=== PATIENT | male | born 1940 | race Caucasian/White ===

== ENCOUNTER → 2024-10-03 | Outpatient (BNVA) | payer MEDICARE, BC, SELFPAY | END | disposition home or self-care (01) | PROVIDERS: PCP Family Medicine; Referring Provider Family Medicine; Visit Provider Urology | DX: N40.1 Benign prostatic hyperplasia with lower urinary tract symptoms (principal); N13.8 Other obstructive and reflux uropathy; E11.42 Type 2 diabetes mellitus with diabetic polyneuropathy; I25.10 Atherosclerotic heart disease of native coronary artery without angina pectoris; E66.9 Obesity, unspecified; Z68.30 Body mass index [BMI] 30.0-30.9, adult | CPT/HCPCS: 81003; 99212; G0463 ==

== ENCOUNTER → 2024-10-21 | Outpatient (CLI) | payer MEDICARE, BC, SELFPAY ==
[2024-10-21 14:23] LABS: Glucose Estimated Average 169 mg/dL (80-131); Hemoglobin A1C 7.5 % Hgb (4.8-6.0)
[2024-10-21 14:30] LABS: Anion Gap 8 (7-16); BUN/Creatinine Ratio 29 Ratio (12-20); Blood Urea Nitrogen 46 mg/dL (9-23); Carbon Dioxide 26.9 mMol/L (20.0-31.0); Chloride 106 mMol/L (98-107); Creatinine (Component) 1.6 mg/dL (0.6-1.3); Glucose 156 mg/dL (74-106); Osmolality,Calculated 296 (275-295); Potassium 4.7 mMol/L (3.4-5.1); Sodium 141 mMol/L (136-145); eGFR 42 See Note
== END | disposition home or self-care (01) ==
LOC: COPL 13:29
PROVIDERS: PCP Nurse Practitioner Family; Referring Provider Nurse Practitioner Family; Visit Provider Nurse Practitioner Family
DX: E11.21 Type 2 diabetes mellitus with diabetic nephropathy (principal)
CPT/HCPCS: 36415; 80048; 83036

== ENCOUNTER → 2024-12-07 | Outpatient (CLI) | payer MEDICARE, BC, SELFPAY ==
[2024-12-07 17:44] LABS: Amphetamine/Methamp Scrn,U Negative (Negative); Barbiturate Screen,Urine Negative (Negative); Benzodiazepines Screen,Urine Negative (Negative); Benzoylecgonine Screen, Ur Negative (Negative); Fentanyl Screen,Urine Negative (Negative); Opiate Screen,Urine Negative (Negative); THC Screen,Urine Negative (Negative)
== END | disposition home or self-care (01) ==
PROVIDERS: PCP Nurse Practitioner Family; Referring Provider Nurse Practitioner Family; Visit Provider Nurse Practitioner Family
DX: G89.4 Chronic pain syndrome (principal)
CPT/HCPCS: 80307

== ENCOUNTER 2025-03-02 14:04 | Outpatient (RCR) | payer MEDICARE, BC, SELFPAY ==
--- NOTE | 2025-03-02 15:21 | CTCFLWUP_ITS ---
Patient: RADHA PACKER : 1940 Page 2 of 2 FOLLOW UP NOTE DATE OF SERVICE: 03/02/2025 NAME: RADHA PACKER ACCOUNT: [id number] : 1940 AGE: 84 INTERVAL HISTORY: Subjective: Chief Complaint Follow-up for neutropenia History of Present Illness Radha Galo is a patient with a history of mild neutropenia who presents for follow-up. He was last seen by Dr. Santana over a year ago for neutropenia and other unspecified issues. The patient reports that he has not had any blood work done this year, despite being called yesterday to come in for an appointment today. He mentions that his blood has always had just a little for over the years, suggesting a chronic, mild hematological condition. Objective: Laboratory, Imaging, and Diagnostic Test Results - Previous results: - CBC: Mild neutropenia (date not specified) ONCOLOGY HISTORY: DIAGNOSIS: Mild asymptomatic leukopenia and neutropenia of unclear etiology. REASON FOR TODAY?S VISIT: This is office follow-up visit. Mr. Packer is here at [facility]. He is clinically doing very well. Denies any new complaints. Denies any cough, chest pain, abdominal pain or leg cramps. He does have persistent neutropenia which is asymptomatic. Patient at this point does not want to have a repeat bone marrow biopsy since he is clinically doing well. 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 Patient had a CBC drawn on 07/08/2018 which showed his WBC count to be 2.8 with an ANC of 1.0. Hemoglobin is 11.5 and platelets 120,000. A repeat CBC was done on 07/14/2018 which showed the WBC count to be 3.3 with an ANC of 1.3. Hemoglobin is 11.2 and platelets are 124,000. A hematology consultation is requested. 08/04/2018: I am seeing the patient in consultation for the first time today. His main complaint at this time is the right lower extremity pain. Other than that he seems to be doing well. He denies any cough chest pain shortness of breath abdominal pain or leg cramps. He denies any fevers or night sweats. According to him the cytopenias are a chronic issue. 08/24/2018: Patient had labs drawn on 08/04/2018. WBC count is 2.1 with an ANC of 1.0. Hemoglobin is 11.4 and platelets are 128,000. He continues to remain asymptomatic at this time. 10/12/2018: Since last visit patient had bone marrow biopsy and aspiration done on 09/21/2018. Bone marrow biopsy showed normal cellular bone marrow with trilineage hematopoiesis. No evidence of myelodysplasia. Karyotyping showed normal 46 XY chromosomes. Flow cytometry normal. His last CBC was drawn on 09/20/2008 which showed the WBC count to be 3.4 with an ANC of 1.0. Hemoglobin is 11.7 and platelets are 138,000. Patient continues to remain asymptomatic. He denies any history of alcohol abuse. He denies any joint pains or muscle aches. 11/08/2018: Rheumatoid factor negative, SILVA negative, hepatitis panel negative 11/11/2018: Abdominal ultrasound did not show any hepatomegaly or splenomegaly. 12/27/2018: T-cell gene rearrangement study came back negative. 12/27/2018: WBC 2.4 ANC 0.8, hemoglobin 12.0 and platelets 120,000 02/10/2019: WBC count 3.4, ANC 1.4, hemoglobin 12, platelet count 239,000. 05/17/2019: WBC 3.2, ANC 1.0, hemoglobin 11.8, platelets 128,000. 12/01/2019: WBC 3.8, ANC 1.5, hemoglobin 12.6, platelets 147,000. 07/13/2020: WBC 4.1, ANC 1.6, hemoglobin 11.7, platelets 123,000. 04/09/2022: WBC 3.1, ANC 1.2, hemoglobin 10.2, MCV 91, platelets 85,000. 12/21/2023: WBC 3.6, ANC 1.2, hemoglobin 11.6, MCV 91, platelets 106,000. OTHER MEDICAL HISTORY/CONDITIONS: FAMILY HISTORY: SOCIAL HISTORY: MEDICATIONS: 1. aspirin - 81 mg 1 tab Daily 2. Lyrica - 100 mg 1 Capsule Twice a Day 3. metFORMIN - 500 mg 1 tab Daily 4. niacin - 750 mg 1 tab Daily 5. Vitamin D2 - 1,000 unit 1 Capsule Daily Medications Last Reconciled by Mónica Valdez MA on 03/02/2025 ALLERGIES: Sulfa (Sulfonamide Antibiotics) REVIEW OF SYSTEMS: A complete 14-point review of systems was performed and is negative except as noted in interval history. PHYSICAL EXAMINATION: VITAL SIGNS: Temperature?97.4, B/P?136/84, Oxygen?Saturation?96% PAIN: 0 - No pain ECOG Performance Status: 0 - Asymptomatic and fully active GENERAL APPEARANCE: Appears well, in no apparent distress, appropriately interactive. HEENT: Normocephalic, no temporal wasting, normal conjunctiva, no scleral icterus, normal hearing, lips without lesions, neck normal range of motion. CARDIOVASCULAR: Not assessed. PULMONARY: Normal respiratory effort, no respiratory distress or use of accessory muscles, speaking in full sentences, no tachypnea. EXTREMITIES: No pedal edema or cyanosis. SKIN: Normal skin appearance. NEUROLOGIC: Alert and oriented x4. PSHYCHIATRIC: Appropriate affect, mood normal, behavior normal, intact thought and speech. LABORATORY DATA: I have personally reviewed and interpreted each of the patient?s relevant lab tests, abnormal findings are below: Date 12/21/23 06/20/24 10/21/24 ??WHITE?BLOOD?COUNT?(Thou/mm3) 3.6?L ?RED?BLOOD?COUNT?(Miln/mm3) 3.94?L ?HEMOGLOBIN?(gm/dl) 11.6?L ?HEMATOCRIT?(%) 36.0?L ?PLATELET?COUNT?(Thou/mm3) 106?L ?NEUTROPHILS?%,?AUTO?(%) 34?L ?LYMPH?%,?AUTO?(%) 55?H ?NEUTROPHILS,?AUTO?(Thou/mm3) 1.2?L ?GLUCOSE,RANDOM?(mg/dL) 146?H 151?H 156?H ??BLOOD?UREA?NITROGEN?(mg/dL) 30?H 39?H 46?H ??CREATININE?(mg/dL) 1.40?H 1.60?H 1.60?H ??SODIUM?(mmol/L) 139 140 141 ??POTASSIUM?(mmol/L) 4.7 4.8 4.7 ??CHLORIDE?(mmol/L) 111?H 107 106 ??CrCl?(CandG)?(ml/min) 46.14 41.24 41.24 ??AST/SGOT?(Unit/L) 23 19 ? ??ALT/SGPT?(Unit/L) 30 18 ? ??ALKALINE?PHOSPHATASE?(Unit/L) 56 58 ? ??BILIRUBIN,?TOTAL?(mg/dL) 0.3 0.4 ? ??PROTEIN?TOTAL?(gm/dl) 6.7 6.3 ? ??ALBUMIN,?SERUM?(gm/dl) 4.2 4.2 ? ??GLOBULIN?(gm/dl) 2.5 2.1?L ? ??ALBUMIN/GLOBULIN?RATIO 1.7 2.0 ? ??CALCIUM,?SERUM?(mg/dL) 9.3 9.5 9.0 ??CALCIUM?SERUM?(CORRECTED)?(mg/dL) 9.3 9.5 ? ASSESSMENT/PLAN: Radha Galo, male patient with a history of mild neutropenia, presenting for follow-up without recent blood work. Neutropenia Assessment: Patient has a history of mild neutropenia diagnosed over a year ago by Dr. Santana. No recent blood work has been performed to assess current status. The patient reports that his blood counts have consistently been slightly low over the years. Asymptomatic leukopenia and neutropenia. Bone marrow biopsy and aspiration negative (09/21/2018). Flow cytometry negative. No evidence of myelodysplasia or leukemia. SILVA, RF negative. B12 and folate in the normal range. Hepatitis panel negative. T-cell gene rearrangement study negative. Plan: - Order complete blood count (CBC) to assess current neutrophil levels - Schedule telephone follow-up to discuss blood work results - Provide patient education on the importance of regular blood work for monitoring neutropenia The patient does not want a repeat bone marrow biopsy in view of his elderly age. No specific intervention required. ORDERS: Order # Description [id number] Comprehensive Metabolic Panel - 12 + CBC with Auto Diff + MD Follow Up 4 Week [id number] Lactate Dehydrogenase (LDH) 8775623 Vitamin B-12 + Folic Acid; Serum + Ferritin RETURN TO CLINIC: BILLING AND COMPLIANCE: I reviewed external records from providers outside my specialty as summarized above. I spent a total of 50 minutes on this patient?s care on the day of their visit excluding time spent related to any billed procedures. This time includes time spent with the patient as well as time spent documenting in the medical record, reviewing patients records and tests, obtaining history, placing orders, communicating with other healthcare professionals, counseling the patient, family or caregiver, and/or care coordination for the diagnoses above. Electronically Signed by: Iglesia Isbell MD T: 3:19 PM CC: PCP: Amy Hobbs Referring: Amy Hobbs This document was completed utilizing speech recognition software. Grammatical errors, random word insertions, pronoun errors, and incomplete sentences are an occasional consequence of this system due to software limitations, ambient noise, and hardware issues. Any formal questions or concerns about the content, text or information contained within the body of this dictation should be directly addressed to the provider for clarification.
== END 2025-03-13 23:59 | disposition home or self-care (01) ==
LOC: SCTC 14:04
PROVIDERS: PCP Nurse Practitioner Family; Referring Provider Nurse Practitioner Family; Visit Provider Internal Medicine Hematology & Oncology
DX: D70.9 Neutropenia, unspecified (principal)
CPT/HCPCS: 99212; G0463

== ENCOUNTER → 2025-03-02 | Outpatient (CLI) | payer MEDICARE, BC, SELFPAY ==
[2025-03-02 16:21] LABS: Basophils % (Auto) 1 % (0-2.5); Eosinophils % (Auto) 1 % (0-10); Hematocrit 34.1 % (41.0-53.0); Hemoglobin 10.9 g/dL (13.5-16.0); Immature Granulocytes % (Auto) 0 % (0-0); Immature Granulocytes Auto 0.01 Thou/mm3 (0.00-0.00); Lymphocytes # (Auto) 1.7 Thou/mm3 (1.0-4.8); Lymphocytes % (Auto) 50 % (10-50); Mean Corpuscular Hemoglobin 29.6 pg (25.0-35.0); Mean Corpuscular Volume 93 fL (80-100); Monocytes # (Auto) 0.3 Thou/mm3 (0.0-0.8); Monocytes % (Auto) 10 % (0-12); Neutrophils # (Auto) 1.3 Thou/mm3 (1.8-7.7); Neutrophils % (Auto) 38 % (37-80); Nucleated Red Blood Cell % 0 /100 WBC (0); Platelet Count 105 Thou/mm3 (140-440); RDW Standard Deviation 52.8 fL (35.1-43.9); Red Blood Count 3.68 Miln/mm3 (4.50-5.90); White Blood Count 3.4 Thou/mm3 (3.8-10.6)
[2025-03-02 16:32] LABS: Alanine Aminotransferase 20 U/L (10-49); Albumin/Globulin Ratio 2.1 (1.2-2.2); Alkaline Phosphatase 54 U/L (46-116); Anion Gap 6 (7-16); Aspartate Amino Transferase 19 U/L (0-34); BUN/Creatinine Ratio 21 Ratio (12-20); Bilirubin,Total 0.5 mg/dL (0.3-1.2); Blood Urea Nitrogen 29 mg/dL (9-23); Calcium 9.1 mg/dL (8.3-10.6); Calcium (Corrected) 9.1 mg/dL (8.5-10.1); Carbon Dioxide 25.2 mMol/L (20.0-31.0); Chloride 111 mMol/L (98-107); Creatinine (Component) 1.4 mg/dL (0.6-1.3); Globulin 1.9 gm/dL (2.3-3.5); Glucose 118 mg/dL (74-106); LDH (Lactate Dehydrogenase) 205 U/L (120-246); Osmolality,Calculated 289 (275-295); Potassium 4.2 mMol/L (3.4-5.1); Sodium 142 mMol/L (136-145); Total Protein 5.9 gm/dL (5.7-8.2); eGFR 49 See Note
[2025-03-02 16:36] LABS: Ferritin 343 ng/mL (10.5-307.3)
[2025-03-02 16:37] LABS: Folate 14.72 ng/mL (>5.38); Vitamin B12 488 pg/mL (211-911)
== END | disposition home or self-care (01) ==
PROVIDERS: PCP Nurse Practitioner Family; Referring Provider Nurse Practitioner Family; Visit Provider Nurse Practitioner Family
DX: D61.818 Other pancytopenia (principal)
CPT/HCPCS: 36415; 80053; 82607; 82728; 82746; 83615; 85025

== ENCOUNTER → 2025-04-14 | Outpatient (CLI) | payer MEDICARE, BC, SELFPAY ==
[2025-04-14 14:07] LABS: Creatinine MALB Rnd Ur 62 mg/dL (30-125); Microalbumin Creat Ratio 8 mg/gCrea (<30); Microalbumin, Random Urine 5 mg/L (0-300)
[2025-04-14 14:07] LABS: Glucose Estimated Average 174 mg/dL (80-131); Hemoglobin A1C 7.7 % Hgb (4.8-6.0)
[2025-04-14 14:08] LABS: Cardiac Risk Estimate 3.8 RATIO (4.0-6.7); Cholesterol 155 mg/dL (132-200); HDL Cholesterol 41 mg/dL (40-60); LDL Cholesterol,Calculated 82 mg/dL (0-130); Triglycerides 158 mg/dL (30-150)
== END | disposition home or self-care (01) ==
LOC: COPL 12:42
PROVIDERS: PCP Nurse Practitioner Family; Referring Provider Nurse Practitioner Family; Visit Provider Nurse Practitioner Family
DX: E11.21 Type 2 diabetes mellitus with diabetic nephropathy (principal); E78.2 Mixed hyperlipidemia
CPT/HCPCS: 36415; 80061; 82043; 82570; 83036

== ENCOUNTER 2025-04-20 14:36 | Outpatient (RCR) | payer MEDICARE, BC, SELFPAY ==
--- NOTE | 2025-04-20 15:18 | CTCFLWUP_ITS ---
Patient: RADHA PACKER : 1940 Page 2 of 4 FOLLOW UP NOTE DATE OF SERVICE: 04/20/2025 NAME: RADHA PACKER ACCOUNT: [id number] : 1940 AGE: 84 INTERVAL HISTORY: Subjective: Chief Complaint Follow-up for neutropenia History of Present Illness Radha Galo is a patient with a history of mild neutropenia who presents for follow-up. Patient complains of pain in his hips . also had an accident and has been bothering him since his accident Objective: Laboratory, Imaging, and Diagnostic Test Results - Previous results: - CBC: fair cytopenia Iron b12 foalte wnl ONCOLOGY HISTORY: DIAGNOSIS: Mild asymptomatic leukopenia and neutropenia of unclear etiology. REASON FOR TODAY?S VISIT: This is office follow-up visit. Mr. Packer is here at [facility]. He is clinically doing very well. Denies any new complaints. Denies any cough, chest pain, abdominal pain or leg cramps. He does have persistent neutropenia which is asymptomatic. Patient at this point does not want to have a repeat bone marrow biopsy since he is clinically doing well. 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 Patient had a CBC drawn on 07/08/2018 which showed his WBC count to be 2.8 with an ANC of 1.0. Hemoglobin is 11.5 and platelets 120,000. A repeat CBC was done on 07/14/2018 which showed the WBC count to be 3.3 with an ANC of 1.3. Hemoglobin is 11.2 and platelets are 124,000. A hematology consultation is requested. 08/04/2018: I am seeing the patient in consultation for the first time today. His main complaint at this time is the right lower extremity pain. Other than that he seems to be doing well. He denies any cough chest pain shortness of breath abdominal pain or leg cramps. He denies any fevers or night sweats. According to him the cytopenias are a chronic issue. 08/24/2018: Patient had labs drawn on 08/04/2018. WBC count is 2.1 with an ANC of 1.0. Hemoglobin is 11.4 and platelets are 128,000. He continues to remain asymptomatic at this time. 10/12/2018: Since last visit patient had bone marrow biopsy and aspiration done on 09/21/2018. Bone marrow biopsy showed normal cellular bone marrow with trilineage hematopoiesis. No evidence of myelodysplasia. Karyotyping showed normal 46 XY chromosomes. Flow cytometry normal. His last CBC was drawn on 09/20/2008 which showed the WBC count to be 3.4 with an ANC of 1.0. Hemoglobin is 11.7 and platelets are 138,000. Patient continues to remain asymptomatic. He denies any history of alcohol abuse. He denies any joint pains or muscle aches. 11/08/2018: Rheumatoid factor negative, SILVA negative, hepatitis panel negative 11/11/2018: Abdominal ultrasound did not show any hepatomegaly or splenomegaly. 12/27/2018: T-cell gene rearrangement study came back negative. 12/27/2018: WBC 2.4 ANC 0.8, hemoglobin 12.0 and platelets 120,000 02/10/2019: WBC count 3.4, ANC 1.4, hemoglobin 12, platelet count 239,000. 05/17/2019: WBC 3.2, ANC 1.0, hemoglobin 11.8, platelets 128,000. 12/01/2019: WBC 3.8, ANC 1.5, hemoglobin 12.6, platelets 147,000. 07/13/2020: WBC 4.1, ANC 1.6, hemoglobin 11.7, platelets 123,000. 04/09/2022: WBC 3.1, ANC 1.2, hemoglobin 10.2, MCV 91, platelets 85,000. 12/21/2023: WBC 3.6, ANC 1.2, hemoglobin 11.6, MCV 91, platelets 106,000. OTHER MEDICAL HISTORY/CONDITIONS: FAMILY HISTORY: SOCIAL HISTORY: MEDICATIONS: 1. aspirin - 81 mg 1 tab Daily 2. Lyrica - 100 mg 1 Capsule Twice a Day 3. metFORMIN - 500 mg 1 tab Daily 4. niacin - 750 mg 1 tab Daily 5. Vitamin D2 - 1,000 unit 1 Capsule Daily Medications Last Reconciled by Joseline Chapa MA on 04/20/2025 ALLERGIES: Sulfa (Sulfonamide Antibiotics) REVIEW OF SYSTEMS: A complete 14-point review of systems was performed and is negative except as noted in interval history. PHYSICAL EXAMINATION: VITAL SIGNS: PAIN: 2 - Mild pain ECOG Performance Status: 1 - Symptomatic; ambulatory; restricted in strenuous activity GENERAL APPEARANCE: Appears well, in no apparent distress, appropriately interactive. HEENT: Normocephalic, no temporal wasting, normal conjunctiva, no scleral icterus, normal hearing, lips without lesions, neck normal range of motion. CARDIOVASCULAR: Not assessed. PULMONARY: Normal respiratory effort, no respiratory distress or use of accessory muscles, speaking in full sentences, no tachypnea. EXTREMITIES: No pedal edema or cyanosis. SKIN: Normal skin appearance. NEUROLOGIC: Alert and oriented x4. PSHYCHIATRIC: Appropriate affect, mood normal, behavior normal, intact thought and speech. LABORATORY DATA: I have personally reviewed and interpreted each of the patient?s relevant lab tests, abnormal findings are below: Date 10/21/24 03/02/25 ??WHITE?BLOOD?COUNT?(Thou/mm3) ? 3.4?L ??RED?BLOOD?COUNT?(Miln/mm3) ? 3.68?L ??HEMOGLOBIN?(gm/dl) ? 10.9?L ??HEMATOCRIT?(%) ? 34.1?L ??PLATELET?COUNT?(Thou/mm3) ? 105?L ??NEUTROPHILS?%,?AUTO?(%) ? 38 ??LYMPH?%,?AUTO?(%) ? 50 ??NEUTROPHILS,?AUTO?(Thou/mm3) ? 1.3?L ??GLUCOSE,RANDOM?(mg/dL) 156?H 118?H ??BLOOD?UREA?NITROGEN?(mg/dL) 46?H 29?H ??CREATININE?(mg/dL) 1.60?H 1.40?H ??SODIUM?(mmol/L) 141 142 ??POTASSIUM?(mmol/L) 4.7 4.2 ??CHLORIDE?(mmol/L) 106 111?H ??CrCl?(CandG)?(ml/min) 41.24 46.27 ??AST/SGOT?(Unit/L) ? 19 ??ALT/SGPT?(Unit/L) ? 20 ??ALKALINE?PHOSPHATASE?(Unit/L) ? 54 ??BILIRUBIN,?TOTAL?(mg/dL) ? 0.5 ??PROTEIN?TOTAL?(gm/dl) ? 5.9 ??ALBUMIN,?SERUM?(gm/dl) ? 4.0 ??GLOBULIN?(gm/dl) ? 1.9?L ??ALBUMIN/GLOBULIN?RATIO ? 2.1 ??CALCIUM,?SERUM?(mg/dL) 9.0 9.1 ??CALCIUM?SERUM?(CORRECTED)?(mg/dL) ? 9.1 ??LDH,?TOTAL?(Unit/L) ? 205 ASSESSMENT/PLAN: Radha Galo, male patient with a history of mild neutropenia, presenting for follow-up without recent blood work. Pancytopenia Assessment: Patient has a history of mild neutropenia diagnosed over a year ago by Dr. Santana. No recent blood work has been performed to assess current status. The patient reports that his blood counts have consistently been slightly low over the years. Asymptomatic leukopenia and neutropeniaanemia and thrombocytopenia and elevated creatinine and bone pain Bone marrow biopsy and aspiration negative (09/21/2018). Flow cytometry negative. No evidence of myelodysplasia or leukemia. SILVA, RF negative. B12 and folate in the normal range. Hepatitis panel negative. T-cell gene rearrangement study negative. Plan: Will do work up for myeloma Flow cytometry for mds/mpn panel Boen density X ray survery to look for any lesion in bone Rtc with the work up in 3 months ORDERS: Order # Description [id number] Free kappa and lambda light chains plus ratio, quantitative + Serum Immunofixation Electrophoresis + Serum Protein Electrophoresis + Beta-2 Microglobulin [id number] Myeloproliferative Neoplasms Extended Reflex Panel + Erythropoieten Level + Flowcytometry [id number] Follow Up 3 Months [id number] DXA L-Spine and Hip [id number] RETURN TO CLINIC: I reviewed the diagnosis, prognosis, and recommended treatment/procedure options with the patient (and/or their legal employee representative), including the potential benefits, risks, side effects and alternative therapies. We also discussed the option of no treatment and the possibility of clinical trial participation, if applicable. All questions were addressed, and they demonstrated understanding. They provided informed consent to proceed with the proposed plan of care. BILLING AND COMPLIANCE: I reviewed external records from providers outside my specialty as summarized above. I spent a total of 50 minutes on this patient?s care on the day of their visit excluding time spent related to any billed procedures. This time includes time spent with the patient as well as time spent documenting in the medical record, reviewing patients records and tests, obtaining history, placing orders, communicating with other healthcare professionals, counseling the patient, family or caregiver, and/or care coordination for the diagnoses above. Electronically Signed by: Iglesia Isbell MD T: 3:16 PM CC: PCP: Amy Hobbs Referring: Amy Hobbs This document was completed utilizing speech recognition software. Grammatical errors, random word insertions, pronoun errors, and incomplete sentences are an occasional consequence of this system due to software limitations, ambient noise, and hardware issues. Any formal questions or concerns about the content, text or information contained within the body of this dictation should be directly addressed to the provider for clarification.
== END 2025-05-14 23:59 | disposition home or self-care (01) ==
LOC: SCTC 14:36
PROVIDERS: PCP Nurse Practitioner Family; Referring Provider Nurse Practitioner Family; Visit Provider Internal Medicine Hematology & Oncology
DX: D61.818 Other pancytopenia (principal)
CPT/HCPCS: Q3014

== ENCOUNTER → 2025-04-24 | Outpatient (CLI) | payer MEDICARE, BC, SELFPAY ==
--- NOTE | 2025-04-24 14:33 | XR_ITS ---
Examination: Metastatic bone series 15 views TECHNIQUE: Jameson and lateral skull series, AP pelvis, lateral cervical spine, thoracic spine, lumbar spine, AP right and left humerus, AP right and left forearm, AP right and left femur, AP right and left tibia-fibula, PA chest upright, total 15 views Date and time: April 24, 2025 1459 hours INDICATIONS: Anemia years. FINDINGS: Intact cranial vault Moderate narrowing left hip joint, advanced right hip joint with old healed right hip fracture Advanced cervical degenerative disc disease C3-C7 Moderate diffuse thoracic degenerative disc disease Moderate diffuse lumbar degenerative disc disease, no pathologic fracture is No osteolytic lesions in the extremities Normal heart size Minor accentuation of basilar bronchovascular markings IMPRESSION: No findings of osseous metastatic disease
[2025-04-24 16:11] LABS: Misc Send Out* See Sep Rpt
[2025-04-29 15:37] LABS: Albumin 4.3 g/dL (3.8-4.8); Alpha-1-Globulin 0.2 g/dL (0.2-0.3); Alpha-2-Globulin 0.7 g/dL (0.5-0.9); Beta-1-Globulin 0.4 g/dL (0.4-0.6); Beta-2-globulin 0.3 g/dL (0.2-0.5); Gamma Globulin 0.7 g/dL (0.8-1.7); Kappa Light Chain, Free 27.8 mg/L (3.3-19.4); Lambda Light Chain, Free 13.8 mg/L (5.7-26.3)
[2025-05-01 06:57] LABS: Beta 2 Microglobulin 3.51 mg/L (< OR = 2.51); Erythropoietin (EPO)* 21.5 mIU/mL (2.6-18.5); Kappa/Lambda, Free Ratio 2.01 (0.26-1.65); Protein, total, serum 6.6 g/dL (6.1-8.1)
== END | disposition home or self-care (01) ==
LOC: CDIM 14:11 → SCTO 14:16
PROVIDERS: PCP Nurse Practitioner Family; Referring Provider Internal Medicine Hematology & Oncology; Visit Provider Radiology Diagnostic Radiology
DX: D61.818 Other pancytopenia (principal)
CPT/HCPCS: 36415; 77074; 81219; 81270; 81279; 81339; 82232; 82668; 83521; 84155; 84165; 86334